=== PATIENT | female | born 1940 | race Caucasian/White ===

== ENCOUNTER 2024-03-16 14:43 | Inpatient (IN) | payer MEDICARE ==
[~2024-03-16] VITALS: Ht 162.6 cm; Wt 95.7 kg
[2024-03-16 16:53] VITALS: BP 102/48; TEMP 98; O2SAT 98
[2024-03-16] MEDS ORDERED: ATOR80TA PO (18:52)
[2024-03-16] MEDS ORDERED: MONT10TA33 PO (18:52)
[2024-03-16] MEDS ORDERED: NITR0.4T48 SL (18:52)
[2024-03-16] MEDS ORDERED: IPRA0.2S48 NEB (18:52)
[2024-03-16] MEDS ORDERED: ACET-2154 PO (18:52)
[2024-03-16] MEDS ORDERED: ALBU2.5V13 NEB ×2 (18:52)
[2024-03-16] MEDS ORDERED: CLOT12CR TP (18:52)
[2024-03-16] MEDS ORDERED: MAGN30OR PO (18:52)
[2024-03-16] MEDS ORDERED: DULO60CA45 PO (18:52)
[2024-03-16] MEDS ORDERED: METF-440 PO (18:52)
[2024-03-16] MEDS ORDERED: LEVO100T10 PO (18:52)
[2024-03-16] MEDS ORDERED: BUME1TAB8 PO (18:52)
[2024-03-16] MEDS ORDERED: GABA600T12 PO (18:52)
[2024-03-16] MEDS ORDERED: ALLO300T2 PO (18:52)
[2024-03-16] MEDS ORDERED: ONDA4TAB5 PO (18:53)
[2024-03-16] MEDS ORDERED: ZOLP5TAB8 PO (18:53)
[2024-03-16] MEDS ORDERED: THEO300C4 PO (18:53)
[2024-03-16] MEDS ORDERED: PANT40TA2 PO (18:53)
[2024-03-16] MEDS ORDERED: TRAM50TA2 PO (18:53)
[2024-03-16] MEDS ORDERED: MAG355OR18 PO (19:32)
[2024-03-16] MEDS ORDERED: ZINC113P3 TP (19:32)
[2024-03-16 20:09] VITALS: BP 95/51; TEMP 97.9; O2SAT 95
[2024-03-16] MEDS ORDERED: ALBUTEROL SULFATE 1.25 MG/3 ML NEBU NEB PRN (21:15)
[2024-03-16] MEDS ORDERED: IPRATROPIUM BROMIDE 0.5 MG/2.5 ML NEBU NEB PRN (21:15)
[2024-03-16] MEDS: ENOXAPARIN SODIUM 40 MG/0.4 ML DISP.SYRIN SQ SCH (23:39)
[2024-03-17] VITALS (7 sets, daily range): BP systolic 110–141; BP diastolic 54–60; TEMP 97.8–98.6; O2SAT 93–99
[2024-03-17] MEDS ORDERED: REMEDY ESSENTIAL ZINC PASTE 113 GM TOP PRN (03:00)
[2024-03-17] MEDS: ACETAMINOPHEN ES 500 MG TABLET PO PRN (04:53)
[2024-03-17] MEDS: LEVOTHYROXINE SODIUM 100 MCG TABLET PO SCH (06:24)
[2024-03-17] MEDS: PANTOPRAZOLE SODIUM 40 MG TABLET.DR PO SCH (06:24)
[2024-03-17] MEDS ORDERED: LEVOTHYROXINE SODIUM 100 MCG TABLET PO SCH (07:30)
[2024-03-17] MEDS ORDERED: THEOPHYLLINE ANHYDROUS 300 MG PO SCH (09:00)
[2024-03-17] MEDS ORDERED: CLOTRIMAZOLE 1% CREAM 30 GM TUBE TP SCH (09:00)
[2024-03-17] MEDS: ALLOPURINOL 300 MG TABLET PO SCH (09:24)
[2024-03-17] MEDS: GABAPENTIN 300 MG CAPSULE PO SCH (09:24)
[2024-03-17] MEDS: METFORMIN HCL 500 MG TABLET PO SCH (09:24)
[2024-03-17] MEDS: CLOTRIMAZOLE 1% CREAM 30 GM TUBE TP SCH (09:25)
[2024-03-17] MEDS ORDERED: OMEP40CA21 PO (11:19)
[2024-03-17] MEDS ORDERED: ROSU40TA PO (11:19)
[2024-03-17] MEDS ORDERED: AIRSUPRA INH (11:41)
[2024-03-17] MEDS ORDERED: POTA-10 PO (12:29)
[2024-03-17] MEDS: IPRATROPIUM BROMIDE 0.5 MG/2.5 ML NEBU NEB SCH (14:26)
[2024-03-17] MEDS: ALBUTEROL SULFATE 1.25 MG/3 ML NEBU NEB SCH (14:26)
[2024-03-17] MEDS: methylPREDNISolone SOD SUCC 125 MG/2 ML VIAL IV ONE (14:36)
[2024-03-17] MEDS: DOXYCYCLINE HYCLATE 100 MG TABLET PO SCH (14:36)
[2024-03-17] MEDS ORDERED: IPRATROPIUM BROMIDE 0.5 MG/2.5 ML NEBU ONE (19:40)
[2024-03-17] MEDS ORDERED: ALBUTEROL SULFATE 2.5 MG/3 ML NEBU ONE (19:40)
[2024-03-17] MEDS: DULOXETINE 60 MG CAPSULE.DR PO SCH (20:43)
[2024-03-17] MEDS: ATORVASTATIN 40 MG TABLET PO SCH (20:44)
[2024-03-17] MEDS: BUMETANIDE 1 MG TABLET PO SCH (20:44)
[2024-03-17] MEDS: MONTELUKAST SODIUM 10 MG TABLET PO SCH (20:44)
[2024-03-18] VITALS (14 sets, daily range): BP systolic 107–139; BP diastolic 56–75; TEMP 97.3–98.6; O2SAT 93–99
[2024-03-18] MEDS: methylPREDNISolone SOD SUCC 40 MG/ML VIAL IV SCH (13:25)
[2024-03-18 19:14] LABS: DIFFERENTIAL COMMENT 0; HEMOGLOBIN 11.7 g/dL (10.9-14.3); LYMPHOCYTES # (AUTO) 1.9 K/uL (0.8-4.8); LYMPHOCYTES % (AUTO) 16.8 % (20.5-51.5); MEAN CORPUSCULAR HEMOGLOBIN 33.2 uug (24.7-32.8); MEAN CORPUSCULAR HGB CONC 33 g/dL (32.3-35.6); MEAN CORPUSCULAR VOLUME 99.9 fL (75.5-95.3); MONOCYTES # (AUTO) 0.2 K/uL (0.1-1.30); MONOCYTES % (AUTO) 1.7 % (0.0-11.0); NEUTROPHILS # (AUTO) 9.2 K/uL (1.8-8.9); NEUTROPHILS % (AUTO) 81.5 % (38.5-71.5); PLATELET COUNT (AUTO) 231 K/uL (179-408); RED BLOOD CELL COUNT(AUTO) 3.51 MIL/uL (3.63-4.92); WHITE BLOOD COUNT (AUTO) 11.3 K/uL (3.8-11.8)
[2024-03-18 19:21] LABS: ALANINE AMINOTRANSFERASE 48 U/L (14-59); ALBUMIN 3.1 g/dL (3.4-5.0); ALKALINE PHOSPHATASE 193 U/L (50-136); ASPARTATE AMINOTRANSFERASE 40 U/L (15-37); BILIRUBIN,TOTAL 0.4 mg/dL (0.2-1.0); CALCIUM 9.6 mg/dL (8.5-10.1); CARBON DIOXIDE 30 mmol/L (21-32); CHLORIDE 102 mmol/L (98-107); CREATININE 1.3 mg/dL (0.6-1.3); GLUCOSE 247 mg/dL (74-106); POTASSIUM 4.6 mmol/L (3.5-5.1); SODIUM SERUM 140 mmol/L (136-145); TOTAL PROTEIN, SERUM 7.2 g/dL (6.4-8.2); UREA NITROGEN, BLOOD 37 mg/dL (7-18)
[2024-03-18] MEDS: MUPIROCIN 2% OINT 22 GM TUBE NS SCH (20:23)
== END 2024-03-18 20:22 | disposition short-term general hospital (02) | DRG 559 ==
PROVIDERS: ADMIT Physical Medicine & Rehabilitation Pain Medicine; ATTEND Physical Medicine & Rehabilitation Pain Medicine
DX: S82.831D Other fracture of upper and lower end of right fibula, subsequent encounter for closed fracture with routine healing (principal); I50.33 Acute on chronic diastolic (congestive) heart failure; I13.0 Hypertensive heart and chronic kidney disease with heart failure and stage 1 through stage 4 chronic kidney disease, or unspecified chronic kidney disease; J44.1 Chronic obstructive pulmonary disease with (acute) exacerbation; W19.XXXD Unspecified fall, subsequent encounter; E03.9 Hypothyroidism, unspecified; E78.5 Hyperlipidemia, unspecified; I48.91 Unspecified atrial fibrillation; F41.9 Anxiety disorder, unspecified; M85.89 Other specified disorders of bone density and structure, multiple sites; N18.30 Chronic kidney disease, stage 3 unspecified; R62.7 Adult failure to thrive; Z87.891 Personal history of nicotine dependence; Z88.2 Allergy status to sulfonamides; K21.9 Gastro-esophageal reflux disease without esophagitis; M19.90 Unspecified osteoarthritis, unspecified site; Z88.8 Allergy status to other drugs, medicaments and biological substances; Z91.018 Allergy to other foods
CPT/HCPCS: 36415; 71045; 83735; 85025; 94640; A9150; J1650; J2919; J3590

== ENCOUNTER 2024-03-23 12:56 | Inpatient (IN) | payer MEDICARE ==
[~2024-03-23] VITALS: Ht 162.6 cm; Wt 92.1 kg
[~2024-03-23 12:56] MED LIST: AIRSUPRA INH; ALLO300T2 PO; BUME1TAB8 PO; CLOT12CR TP; DULO60CA45 PO; GABA600T12 PO; LEVO100T10 PO; METF-440 PO; MONT10TA33 PO; NITR0.4T48 SL; OMEP40CA21 PO; POTA-10 PO; ROSU40TA PO; THEO300C4 PO; TRAM50TA2 PO; ZOLP5TAB8 PO
[2024-03-23] MEDS ORDERED: MUPI22OI2 (14:57)
[2024-03-23] MEDS ORDERED: ATOR80TA PO (15:01)
[2024-03-23] MEDS ORDERED: PANT40TA2 PO (15:02)
[2024-03-23] MEDS ORDERED: ALBU1.25 IH (15:05)
[2024-03-23] MEDS ORDERED: IPRA0.2S48 NEB (15:06)
[2024-03-23] MEDS ORDERED: METH40VI33 IV (15:20)
[2024-03-23] MEDS ORDERED: GUAI600T53 PO (15:22)
[2024-03-23] MEDS ORDERED: POLY17PO4 PO (15:23)
[2024-03-23 15:26] VITALS: BP 113/59; TEMP 97.8; O2SAT 94
[2024-03-23] MEDS ORDERED: TRAMADOL HCL 50 MG TABLET PO PRN (19:00)
[2024-03-23 19:15] VITALS: O2SAT 97
[2024-03-23 19:25] VITALS: O2SAT 99
[2024-03-23] MEDS: MONTELUKAST SODIUM 10 MG TABLET PO SCH (20:06)
[2024-03-23] MEDS: THEOPHYLLINE 300 MG PO SCH (20:06)
[2024-03-23] MEDS: MUPIROCIN 2% OINT 22 GM TUBE NS SCH (20:06)
[2024-03-23] MEDS: ATORVASTATIN 40 MG TABLET PO SCH (20:06)
[2024-03-23] MEDS: DULOXETINE 60 MG CAPSULE.DR PO SCH (20:06)
[2024-03-23] MEDS: GUAIFENESIN LA 600 MG TABLET.SA PO SCH (20:06)
[2024-03-23] MEDS ORDERED: Medication Not On Formulary EA (Atorvastatin Calcium (Lipitor) 80 MG) PO SCH (21:00)
[2024-03-23] MEDS ORDERED: ZOLPIDEM 5 MG TABLET PO PRN (21:00)
[2024-03-23 23:11] VITALS: O2SAT 98
[2024-03-23 23:21] VITALS: O2SAT 99
[2024-03-23 23:54] VITALS: BP 121/67; TEMP 97.7; O2SAT 95
[2024-03-24] VITALS (13 sets, daily range): BP systolic 101–130; BP diastolic 62–66; TEMP 97.5–98.1; O2SAT 96–100
[2024-03-24] MEDS: ALBUTEROL SULFATE 1.25 MG/3 ML NEBU IH SCH (03:50)
[2024-03-24] MEDS: IPRATROPIUM BROMIDE 0.5 MG/2.5 ML NEBU NEB SCH (03:50)
[2024-03-24] MEDS: LEVOTHYROXINE SODIUM 100 MCG TABLET PO SCH (06:10)
[2024-03-24] MEDS: PANTOPRAZOLE SODIUM 40 MG TABLET.DR PO SCH (06:10)
[2024-03-24] MEDS: MIRALAX 17 GM POWD.PACK PO SCH (08:31)
[2024-03-24] MEDS: BUMETANIDE 1 MG TABLET PO SCH (08:31)
[2024-03-24] MEDS: ALLOPURINOL 300 MG TABLET PO SCH (08:32)
[2024-03-24] MEDS: GABAPENTIN 300 MG CAPSULE PO SCH (08:32)
[2024-03-24] MEDS: METFORMIN HCL 500 MG TABLET PO SCH (08:32)
[2024-03-24] MEDS: POTASSIUM CHLORIDE 10 MEQ TAB.PRT.SR PO SCH (08:32)
[2024-03-24] MEDS: methylPREDNISolone SOD SUCC 40 MG/ML VIAL IV SCH (08:32)
[2024-03-24] MEDS: CLOTRIMAZOLE 1% CREAM 30 GM TUBE TP SCH (08:34)
[2024-03-24] MEDS ORDERED: Medication Not On Formulary EA (Gabapentin 600 MG) PO SCH (09:00)
[2024-03-25] VITALS (18 sets, daily range): BP systolic 97–118; BP diastolic 53–69; TEMP 97.4–98.3; O2SAT 92–100
[2024-03-26] VITALS (17 sets, daily range): BP systolic 101–133; BP diastolic 50–67; TEMP 97.7–98.3; O2SAT 94–99
[2024-03-26] MEDS: predniSONE 20 MG TABLET PO SCH (09:11)
[2024-03-27] VITALS (14 sets, daily range): BP systolic 98–107; BP diastolic 46–56; TEMP 97.4–97.7; O2SAT 96–99
[2024-03-28] VITALS (16 sets, daily range): BP systolic 99–116; BP diastolic 54–75; TEMP 97.5–98.4; O2SAT 92–99
[2024-03-28 07:47] LABS: EOSINOPHILS # (AUTO) 0.3 K/uL (0.0-0.7); EOSINOPHILS % (AUTO) 1.3 % (0.0-7.0); HEMATOCRIT 35.6 % (31.2-41.9); HEMOGLOBIN 11.8 g/dL (10.9-14.3); LYMPHOCYTES # (AUTO) 8.5 K/uL (0.8-4.8); LYMPHOCYTES % (AUTO) 44.9 % (20.5-51.5); MEAN CORPUSCULAR HEMOGLOBIN 33.1 uug (24.7-32.8); MEAN CORPUSCULAR HGB CONC 33 g/dL (32.3-35.6); MONOCYTES # (AUTO) 1.1 K/uL (0.1-1.30); MONOCYTES % (AUTO) 5.6 % (0.0-11.0); NEUTROPHILS # (AUTO) 9.1 K/uL (1.8-8.9); NEUTROPHILS % (AUTO) 48.2 % (38.5-71.5); PLATELET COUNT (AUTO) 202 K/uL (179-408); RED BLOOD CELL COUNT(AUTO) 3.56 MIL/uL (3.63-4.92); RED CELL DISTRIBUTION WIDTH 16.3 % (12.3-17.7); WHITE BLOOD COUNT (AUTO) 18.9 K/uL (3.8-11.8)
[2024-03-28 07:52] LABS: DIFFERENTIAL COMMENT 1
[2024-03-28 08:07] LABS: THYROID STIMULATING HORMONE 1.487 mIU/mL (0.358-3.740)
[2024-03-28 08:44] LABS: ALBUMIN 3.4 g/dL (3.4-5.0); BILIRUBIN,TOTAL 0.8 mg/dL (0.2-1.0); CALCIUM 9.3 mg/dL (8.5-10.1); CREATININE 1.1 mg/dL (0.6-1.3); MAGNESIUM 2.2 mg/dL (1.8-2.4); PHOSPHOROUS 2.5 mg/dL (2.5-4.9); POTASSIUM 3.1 mmol/L (3.5-5.1); TOTAL PROTEIN, SERUM 6.9 g/dL (6.4-8.2)
[2024-03-29] VITALS (13 sets, daily range): BP systolic 105–119; BP diastolic 56–64; TEMP 97.7–98.7; O2SAT 91–99
[2024-03-30] VITALS (16 sets, daily range): BP systolic 114–144; BP diastolic 60–67; TEMP 97.2–98; O2SAT 94–99
[2024-03-30 08:35] LABS: *BILIRUBIN,URIN NEGATIVE (NEGATIVE); *BLOOD, URINE NEGATIVE (NEGATIVE); *CLARITY,URINE CLEAR (CLEAR); *COLOR,URINE YELLOW (YELLOW); *KETONES,URINE NEGATIVE (NEGATIVE); *PROTEIN,URINE NEGATIVE (NEGATIVE); *UROBILINOGEN,URINE 0.2 E.U./dl (NORMAL); LEUKOCYTE ESTERASE ,URINE NEGATIVE (NEGATIVE); NITRITE, URINE NEGATIVE (NEGATIVE); UGLUCOSE NEGATIVE (NEGATIVE)
[2024-03-30] MEDS: ONDANSETRON 4 MG/2 ML VIAL IV PRN (14:27)
[2024-03-30] MEDS: ATORVASTATIN 40 MG TABLET PO SCH (21:25)
[2024-03-31] VITALS (17 sets, daily range): BP systolic 100–124; BP diastolic 56–61; TEMP 97.8–98.7; O2SAT 93–99
[2024-03-31 07:17] LABS: BASOPHILS # (AUTO) 0.1 K/UL (0.0-0.2); BASOPHILS % (AUTO) 0.3 % (0.0-2.0); EOSINOPHILS # (AUTO) 0.2 K/uL (0.0-0.7); EOSINOPHILS % (AUTO) 1.2 % (0.0-7.0); HEMATOCRIT 34.5 % (31.2-41.9); HEMOGLOBIN 11.3 g/dL (10.9-14.3); LYMPHOCYTES % (AUTO) 46.2 % (20.5-51.5); MEAN CORPUSCULAR HEMOGLOBIN 33.1 uug (24.7-32.8); MEAN CORPUSCULAR HGB CONC 33 g/dL (32.3-35.6); MEAN CORPUSCULAR VOLUME 101.4 fL (75.5-95.3); MONOCYTES # (AUTO) 1.1 K/uL (0.1-1.30); MONOCYTES % (AUTO) 5.4 % (0.0-11.0); NEUTROPHILS # (AUTO) 9.1 K/uL (1.8-8.9); NEUTROPHILS % (AUTO) 46.9 % (38.5-71.5); PLATELET COUNT (AUTO) 181 K/uL (179-408); RED CELL DISTRIBUTION WIDTH 16.6 % (12.3-17.7); WHITE BLOOD COUNT (AUTO) 19.5 K/uL (3.8-11.8)
[2024-03-31 07:37] LABS: DIFFERENTIAL COMMENT 1
[2024-03-31 07:43] LABS: ALANINE AMINOTRANSFERASE 27 U/L (14-59); ALBUMIN 3.3 g/dL (3.4-5.0); ALKALINE PHOSPHATASE 120 U/L (50-136); ASPARTATE AMINOTRANSFERASE 17 U/L (15-37); BILIRUBIN,TOTAL 0.5 mg/dL (0.2-1.0); CALCIUM 8.9 mg/dL (8.5-10.1); CARBON DIOXIDE 36 mmol/L (21-32); CHLORIDE 97 mmol/L (98-107); CREATININE 1.1 mg/dL (0.6-1.3); GLUCOSE 118 mg/dL (74-106); MAGNESIUM 2.1 mg/dL (1.8-2.4); PHOSPHOROUS 3.4 mg/dL (2.5-4.9); POTASSIUM 3.2 mmol/L (3.5-5.1); SODIUM SERUM 139 mmol/L (136-145); TOTAL PROTEIN, SERUM 6.5 g/dL (6.4-8.2); UREA NITROGEN, BLOOD 22 mg/dL (7-18)
[2024-03-31] MEDS: GUAIFENESIN LA 600 MG TABLET.SA PO SCH (08:27)
[2024-03-31] MEDS: POTASSIUM CHLORIDE 20 MEQ TAB.PRT.SR PO ONE (11:47)
[2024-04-01] VITALS (17 sets, daily range): BP systolic 122–133; BP diastolic 64–70; TEMP 97.6–98.7; O2SAT 94–98
[2024-04-02] VITALS (15 sets, daily range): BP systolic 124–137; BP diastolic 59–73; TEMP 97.5–98.7; O2SAT 91–98
[2024-04-02] MEDS ORDERED: IPRATROPIUM BROMIDE 0.5 MG/2.5 ML NEBU NEB PRN (23:15)
[2024-04-02] MEDS ORDERED: ALBUTEROL SULFATE 2.5 MG/ 0.5 ML NEBU NEB PRN (23:15)
[2024-04-03] VITALS (15 sets, daily range): BP systolic 108–118; BP diastolic 56–60; TEMP 97.6–98.7; O2SAT 92–98
[2024-04-03] MEDS: predniSONE 10 MG TABLET PO SCH (08:07)
[2024-04-03] MEDS: FLUTICASONE/VILANTEROL 1 EACH BLST.W.DEV INH SCH (08:52)
[2024-04-04] VITALS (15 sets, daily range): BP systolic 106–130; BP diastolic 55–71; TEMP 97.9–98.7; O2SAT 95–100
[2024-04-05] VITALS (15 sets, daily range): BP systolic 103–121; BP diastolic 56–60; TEMP 97.6–98.5; O2SAT 94–99
[2024-04-06] VITALS (15 sets, daily range): BP systolic 102–125; BP diastolic 55–70; TEMP 97.5–98.4; O2SAT 95–99
[2024-04-06] MEDS ORDERED: REMEDY ESSENTIAL ZINC PASTE 113 GM TOP PRN (08:00)
[2024-04-06] MEDS ORDERED: GUAIFENESIN/D-METHORPHAN 10 ML UDC (DIABETIC FORMULA) PO PRN (09:00)
[2024-04-06] MEDS: GUAIFENESIN SUGAR FREE 100 MG/5 ML UDC PO PRN (12:52)
[2024-04-06] MEDS: BUMETANIDE 1 MG TABLET PO SCH (13:40)
[2024-04-07] VITALS (16 sets, daily range): BP systolic 104–124; BP diastolic 54–72; TEMP 98.2–98.5; O2SAT 94–100
[2024-04-08] VITALS (8 sets, daily range): BP systolic 124–134; BP diastolic 57–63; TEMP 97.9–98.3; O2SAT 96–100
== END 2024-04-08 14:00 | DRG 560 ==
PROVIDERS: ADMIT Physical Medicine & Rehabilitation Pain Medicine; ATTEND Physical Medicine & Rehabilitation
DX: S82.831D Other fracture of upper and lower end of right fibula, subsequent encounter for closed fracture with routine healing (principal); D68.59 Other primary thrombophilia; E44.1 Mild protein-calorie malnutrition; I13.0 Hypertensive heart and chronic kidney disease with heart failure and stage 1 through stage 4 chronic kidney disease, or unspecified chronic kidney disease; I50.32 Chronic diastolic (congestive) heart failure; J44.1 Chronic obstructive pulmonary disease with (acute) exacerbation; I48.0 Paroxysmal atrial fibrillation; K21.9 Gastro-esophageal reflux disease without esophagitis; I25.10 Atherosclerotic heart disease of native coronary artery without angina pectoris; E03.9 Hypothyroidism, unspecified; E78.5 Hyperlipidemia, unspecified; N18.30 Chronic kidney disease, stage 3 unspecified; Z68.36 Body mass index [BMI] 36.0-36.9, adult; E66.9 Obesity, unspecified; W19.XXXD Unspecified fall, subsequent encounter; E11.22 Type 2 diabetes mellitus with diabetic chronic kidney disease; E11.40 Type 2 diabetes mellitus with diabetic neuropathy, unspecified; E87.6 Hypokalemia; E88.09 Other disorders of plasma-protein metabolism, not elsewhere classified; F41.9 Anxiety disorder, unspecified; H35.30 Unspecified macular degeneration; M19.90 Unspecified osteoarthritis, unspecified site; Z88.2 Allergy status to sulfonamides; Z95.818 Presence of other cardiac implants and grafts; Z98.61 Coronary angioplasty status; R26.89 Other abnormalities of gait and mobility; Z88.8 Allergy status to other drugs, medicaments and biological substances; Z91.018 Allergy to other foods
CPT/HCPCS: 36415; 83550; 83735; 84100; 84443; 85025; 94640; 94664; 94760; 97535-GO-CO; A6209; A6213; J2405; J2919; J3590; J7512

== ENCOUNTER 2024-06-04 20:24 | Inpatient (IN) | payer MEDICARE ==
[~2024-06-04] VITALS: Ht 162.6 cm; Wt 94.8 kg
[~2024-06-04 20:24] MED LIST changes: +ALBU1.25 IH; +ATOR80TA PO; +GUAI600T53 PO; +IPRA0.2S48 NEB; +MUPI22OI2; -OMEP40CA21 PO; +PANT40TA2 PO; +POLY17PO4 PO; -ROSU40TA PO
[2024-06-04] MEDS ORDERED: PROT30LI PO (21:05)
[2024-06-04] MEDS ORDERED: CLOT30CR24 TP (21:05)
[2024-06-04] MEDS ORDERED: BISA10SU61 RC (21:05)
[2024-06-04] MEDS ORDERED: MAGN400O6 PO (21:05)
[2024-06-04] MEDS ORDERED: ASCO500C18 PO (21:05)
[2024-06-04] MEDS ORDERED: NA P133E RC (21:05)
[2024-06-04] MEDS ORDERED: MULT-1045 PO (21:05)
[2024-06-04] MEDS ORDERED: ACET325T53 PO (21:05)
[2024-06-04] MEDS ORDERED: DOCU100C36 PO (21:05)
[2024-06-04] MEDS ORDERED: [UNRECOGNIZED DRUG - OTHER] PO (21:05)
[2024-06-04] MEDS ORDERED: KETOROLAC TROMETHAMINE 15 MG INJ ONE (21:20)
[2024-06-04] MEDS: KETOROLAC TROMETHAMINE 15 MG INJ IVP ONE (21:23)
[2024-06-04 21:24] LABS: BASOPHILS % (AUTO) 0.7 % (0.0-2.0); DIFFERENTIAL COMMENT 1; EOSINOPHILS # (AUTO) 0.3 K/uL (0.0-0.7); EOSINOPHILS % (AUTO) 5.2 % (0.0-7.0); HEMATOCRIT 36.6 % (31.2-41.9); HEMOGLOBIN 11.8 g/dL (10.9-14.3); LYMPHOCYTES # (AUTO) 2.6 K/uL (0.8-4.8); LYMPHOCYTES % (AUTO) 39.7 % (20.5-51.5); MEAN CORPUSCULAR HEMOGLOBIN 32.5 uug (24.7-32.8); MEAN CORPUSCULAR HGB CONC 32 g/dL (32.3-35.6); MONOCYTES # (AUTO) 0.6 K/uL (0.1-1.30); MONOCYTES % (AUTO) 9.7 % (0.0-11.0); NEUTROPHILS # (AUTO) 2.9 K/uL (1.8-8.9); NEUTROPHILS % (AUTO) 44.7 % (38.5-71.5); PLATELET COUNT (AUTO) 174 K/uL (179-408); RED BLOOD CELL COUNT(AUTO) 3.62 MIL/uL (3.63-4.92); RED CELL DISTRIBUTION WIDTH 15.9 % (12.3-17.7); WHITE BLOOD COUNT (AUTO) 6.5 K/uL (3.8-11.8)
[2024-06-04 21:34] LABS: CALCIUM 9.4 mg/dL (8.5-10.1); CREATININE 1.1 mg/dL (0.6-1.3); POTASSIUM 3.9 mmol/L (3.5-5.1)
[2024-06-04 21:44] LABS: ALBUMIN 2.8 g/dL (3.4-5.0); BILIRUBIN,DIRECT 0.1 mg/dL (0.0-0.2); BILIRUBIN,TOTAL 0.5 mg/dL (0.2-1.0); TOTAL PROTEIN, SERUM 6.2 g/dL (6.4-8.2)
[2024-06-04] MEDS ORDERED: VANCOMYCIN 1000 MG VIAL ONE (23:19)
[2024-06-04] MEDS ORDERED: VANCOMYCIN HCL 500 MG VIAL ONE (23:19)
[2024-06-04] MEDS: VANCOMYCIN IV 1,500 MG in IV DEXTROSE 5% 250 ML IV ONE (23:31)
[2024-06-05] MEDS ORDERED: ACETAMINOPHEN 325 MG TABLET PO PRN (00:15)
[2024-06-05] MEDS ORDERED: MORPHINE SULFATE 2 MG/1 ML DISP.SYRIN IVP PRN (00:15)
[2024-06-05] MEDS ORDERED: hydrALAZINE HCL 20 MG/1 ML VIAL IV PRN (00:15)
[2024-06-05] MEDS ORDERED: ONDANSETRON 4 MG/2 ML VIAL IV PRN (00:15)
[2024-06-05] MEDS: IV NS 1000 ML 1,000 ML IV SCH (03:30)
[2024-06-05 05:21] VITALS: O2SAT 96
[2024-06-05 06:00] VITALS: BP 114/59; TEMP 97.8; O2SAT 95
[2024-06-05] MEDS ORDERED: CLINDAMYCIN 900MG/D5W 100ML IVPB **ER PYXIS ONLY IJ ONE (06:08)
[2024-06-05] MEDS: CLINDAMYCIN PHOSPHATE IV 900 MG in IV DEXTROSE 5% 100 ML IV SCH (06:46)
[2024-06-05] MEDS: PANTOPRAZOLE SODIUM 40 MG TABLET.DR PO SCH (06:50)
[2024-06-05] MEDS: LEVOTHYROXINE SODIUM 100 MCG TABLET PO SCH (06:50)
[2024-06-05] MEDS: ALLOPURINOL 300 MG TABLET PO SCH (08:46)
[2024-06-05] MEDS: BUMETANIDE 1 MG TABLET PO SCH (08:46)
[2024-06-05] MEDS: GABAPENTIN 300 MG CAPSULE PO SCH (08:47)
[2024-06-05] MEDS: HEPARIN SODIUM,PORCINE 5,000 UNITS/ML VIAL SQ SCH (08:50)
[2024-06-05] MEDS ORDERED: ACET-73 PO (11:39)
[2024-06-05 11:42] VITALS: BP 119/51; TEMP 97.7; O2SAT 99
[2024-06-05] MEDS ORDERED: REMEDY ESSENTIAL ZINC PASTE 113 GM TOP PRN (13:30)
[2024-06-05] MEDS: MIRALAX 17 GM POWD.PACK PO ONE (13:40)
[2024-06-05] MEDS ORDERED: SENNOSIDES 1 TABLET PO PRN (13:45)
[2024-06-05 15:53] VITALS: BP 107/48; TEMP 97.8; O2SAT 94
[2024-06-05] MEDS: CLOTRIMAZOLE 1% CREAM 30 GM TUBE TOP SCH (17:30)
[2024-06-05] MEDS: MONTELUKAST SODIUM 10 MG TABLET PO SCH (20:24)
[2024-06-05] MEDS: ATORVASTATIN 40 MG TABLET PO SCH (20:24)
[2024-06-05] MEDS: DOCUSATE SODIUM 100 MG CAPSULE PO SCH (20:24)
[2024-06-05] MEDS: DULOXETINE 60 MG CAPSULE.DR PO SCH (20:24)
[2024-06-05] MEDS: REMEDY ESSENTIAL ZINC PASTE 113 GM TOP SCH (20:25)
[2024-06-05 20:56] VITALS: BP 108/53; TEMP 98.4; O2SAT 96
[2024-06-05] MEDS ORDERED: DOCUSATE SODIUM 100 MG/10 ML LIQUID UDC GT SCH (21:00)
[2024-06-05] MEDS ORDERED: HEPARIN SODIUM,PORCINE 5,000 UNITS/ML VIAL SQ SCH (21:00)
[2024-06-05] MEDS: MUPIROCIN 2% OINT 22 GM TUBE TP SCH (21:00)
[2024-06-06 06:09] VITALS: BP 104/52; TEMP 97.7; O2SAT 94
[2024-06-06] MEDS: LEVOTHYROXINE SODIUM 100 MCG TABLET PO SCH (06:09)
[2024-06-06 07:46] LABS: BASOPHILS % (AUTO) 0.5 % (0.0-2.0); EOSINOPHILS # (AUTO) 0.4 K/uL (0.0-0.7); EOSINOPHILS % (AUTO) 5.4 % (0.0-7.0); HEMATOCRIT 32.9 % (31.2-41.9); HEMOGLOBIN 10.6 g/dL (10.9-14.3); LYMPHOCYTES # (AUTO) 2.9 K/uL (0.8-4.8); MEAN CORPUSCULAR HEMOGLOBIN 32.7 uug (24.7-32.8); MEAN CORPUSCULAR HGB CONC 32 g/dL (32.3-35.6); MEAN CORPUSCULAR VOLUME 101.2 fL (75.5-95.3); MONOCYTES # (AUTO) 0.8 K/uL (0.1-1.30); NEUTROPHILS # (AUTO) 2.7 K/uL (1.8-8.9); NEUTROPHILS % (AUTO) 40.1 % (38.5-71.5); PLATELET COUNT (AUTO) 183 K/uL (179-408); RED BLOOD CELL COUNT(AUTO) 3.25 MIL/uL (3.63-4.92); RED CELL DISTRIBUTION WIDTH 15.8 % (12.3-17.7); WHITE BLOOD COUNT (AUTO) 6.8 K/uL (3.8-11.8)
[2024-06-06 08:01] LABS: DIFFERENTIAL COMMENT 1
[2024-06-06 08:02] LABS: ALANINE AMINOTRANSFERASE 13 U/L (14-59); ALBUMIN 2.6 g/dL (3.4-5.0); ALKALINE PHOSPHATASE 100 U/L (50-136); ASPARTATE AMINOTRANSFERASE 13 U/L (15-37); BILIRUBIN,TOTAL 0.5 mg/dL (0.2-1.0); CALCIUM 8.8 mg/dL (8.5-10.1); CARBON DIOXIDE 37 mmol/L (21-32); CHLORIDE 102 mmol/L (98-107); CREATININE 1.2 mg/dL (0.6-1.3); GLUCOSE 125 mg/dL (74-106); POTASSIUM 4.1 mmol/L (3.5-5.1); SODIUM SERUM 142 mmol/L (136-145); UREA NITROGEN, BLOOD 31 mg/dL (7-18)
[2024-06-06 10:59] VITALS: BP 109/52; TEMP 98.2; O2SAT 95
[2024-06-06 15:03] VITALS: BP 101/55; TEMP 98.4; O2SAT 93
[2024-06-06 16:15] VITALS: O2SAT 95
[2024-06-06] MEDS ORDERED: ALBUTEROL SULFATE 1.25 MG/3 ML NEBU NEB PRN (20:15)
[2024-06-06] MEDS ORDERED: IPRATROPIUM BROMIDE 0.5 MG/2.5 ML NEBU NEB PRN (20:15)
[2024-06-06 20:25] VITALS: BP 100/48; TEMP 98; O2SAT 94
[2024-06-07 05:52] VITALS: O2SAT 96
[2024-06-07 06:20] VITALS: BP 107/44; TEMP 97.5; O2SAT 94
[2024-06-07 08:02] LABS: BASOPHILS % (AUTO) 0.5 % (0.0-2.0); EOSINOPHILS # (AUTO) 0.3 K/uL (0.0-0.7); HEMATOCRIT 34.9 % (31.2-41.9); HEMOGLOBIN 11.4 g/dL (10.9-14.3); LYMPHOCYTES # (AUTO) 2.6 K/uL (0.8-4.8); LYMPHOCYTES % (AUTO) 40.6 % (20.5-51.5); MEAN CORPUSCULAR HEMOGLOBIN 32.9 uug (24.7-32.8); MEAN CORPUSCULAR HGB CONC 33 g/dL (32.3-35.6); MEAN CORPUSCULAR VOLUME 101.2 fL (75.5-95.3); MONOCYTES # (AUTO) 0.6 K/uL (0.1-1.30); MONOCYTES % (AUTO) 9.7 % (0.0-11.0); NEUTROPHILS # (AUTO) 2.8 K/uL (1.8-8.9); NEUTROPHILS % (AUTO) 44.2 % (38.5-71.5); PLATELET COUNT (AUTO) 185 K/uL (179-408); RED BLOOD CELL COUNT(AUTO) 3.45 MIL/uL (3.63-4.92); RED CELL DISTRIBUTION WIDTH 15.7 % (12.3-17.7); WHITE BLOOD COUNT (AUTO) 6.3 K/uL (3.8-11.8)
[2024-06-07 08:05] LABS: CARBON DIOXIDE 37 mmol/L (21-32); CHLORIDE 106 mmol/L (98-107); CREATININE 1.2 mg/dL (0.6-1.3); GLUCOSE 119 mg/dL (74-106); MAGNESIUM 2.6 mg/dL (1.8-2.4); PHOSPHOROUS 4.2 mg/dL (2.5-4.9); POTASSIUM 4.3 mmol/L (3.5-5.1); SODIUM SERUM 145 mmol/L (136-145); UREA NITROGEN, BLOOD 32 mg/dL (7-18)
[2024-06-07 08:26] LABS: DIFFERENTIAL COMMENT 1
[2024-06-07 11:04] VITALS: BP 109/49; TEMP 97.5; O2SAT 94
[2024-06-07 15:11] VITALS: BP 126/73; TEMP 98.5
[2024-06-07 16:33] VITALS: O2SAT 95
[2024-06-07 20:35] VITALS: BP 97/46; TEMP 98.4; O2SAT 93
[2024-06-08 02:50] VITALS: O2SAT 96
[2024-06-08 06:00] VITALS: BP 120/55; TEMP 98.3; O2SAT 93
[2024-06-08 06:56] LABS: BASOPHILS % (AUTO) 0.4 % (0.0-2.0); EOSINOPHILS # (AUTO) 0.3 K/uL (0.0-0.7); EOSINOPHILS % (AUTO) 4.5 % (0.0-7.0); HEMATOCRIT 33.9 % (31.2-41.9); LYMPHOCYTES # (AUTO) 2.9 K/uL (0.8-4.8); LYMPHOCYTES % (AUTO) 45.8 % (20.5-51.5); MEAN CORPUSCULAR HEMOGLOBIN 32.9 uug (24.7-32.8); MEAN CORPUSCULAR HGB CONC 33 g/dL (32.3-35.6); MEAN CORPUSCULAR VOLUME 100.8 fL (75.5-95.3); MONOCYTES # (AUTO) 0.6 K/uL (0.1-1.30); MONOCYTES % (AUTO) 9.8 % (0.0-11.0); NEUTROPHILS # (AUTO) 2.5 K/uL (1.8-8.9); NEUTROPHILS % (AUTO) 39.5 % (38.5-71.5); PLATELET COUNT (AUTO) 200 K/uL (179-408); RED BLOOD CELL COUNT(AUTO) 3.36 MIL/uL (3.63-4.92); RED CELL DISTRIBUTION WIDTH 15.7 % (12.3-17.7); WHITE BLOOD COUNT (AUTO) 6.3 K/uL (3.8-11.8)
[2024-06-08 07:08] LABS: CALCIUM 8.9 mg/dL (8.5-10.1); CARBON DIOXIDE 38 mmol/L (21-32); CHLORIDE 105 mmol/L (98-107); CREATININE 1.2 mg/dL (0.6-1.3); GLUCOSE 114 mg/dL (74-106); POTASSIUM 4.5 mmol/L (3.5-5.1); SODIUM SERUM 143 mmol/L (136-145); UREA NITROGEN, BLOOD 33 mg/dL (7-18)
[2024-06-08 07:37] LABS: DIFFERENTIAL COMMENT 1
[2024-06-08] MEDS ORDERED: ALBUTEROL SULFATE 2.5 MG/3 ML NEBU NEB PRN (09:45)
[2024-06-08 12:00] VITALS: BP 105/58; TEMP 97.6; O2SAT 96
[2024-06-08 16:00] VITALS: BP 101/58; TEMP 97.8; O2SAT 97
== END 2024-06-08 16:30 | DRG 563 ==
LOC: ER 20:26 → MEDSURG3 06-05 00:23
PROVIDERS: ADMIT Internal Medicine
PROC: 2W3RX1Z Immobilization of Left Lower Leg using Splint (ICD-10-PCS; principal; 2024-06-05)
DX: S82.52XA Displaced fracture of medial malleolus of left tibia, initial encounter for closed fracture (principal); L03.116 Cellulitis of left lower limb; I45.2 Bifascicular block; I13.0 Hypertensive heart and chronic kidney disease with heart failure and stage 1 through stage 4 chronic kidney disease, or unspecified chronic kidney disease; I50.32 Chronic diastolic (congestive) heart failure; J96.11 Chronic respiratory failure with hypoxia; V98.8XXA Other specified transport accidents, initial encounter; Y92.89 Other specified places as the place of occurrence of the external cause; E86.0 Dehydration; Z88.2 Allergy status to sulfonamides; Z91.041 Radiographic dye allergy status; I48.0 Paroxysmal atrial fibrillation; I25.10 Atherosclerotic heart disease of native coronary artery without angina pectoris; Z96.653 Presence of artificial knee joint, bilateral; Z95.5 Presence of coronary angioplasty implant and graft; Z79.899 Other long term (current) drug therapy; Z79.890 Hormone replacement therapy; J44.9 Chronic obstructive pulmonary disease, unspecified; E66.9 Obesity, unspecified; Z68.35 Body mass index [BMI] 35.0-35.9, adult; H35.30 Unspecified macular degeneration; E87.6 Hypokalemia; F41.9 Anxiety disorder, unspecified; G62.9 Polyneuropathy, unspecified; K59.00 Constipation, unspecified; E03.9 Hypothyroidism, unspecified; K21.9 Gastro-esophageal reflux disease without esophagitis; R32 Unspecified urinary incontinence; N18.9 Chronic kidney disease, unspecified; M85.80 Other specified disorders of bone density and structure, unspecified site; Z99.81 Dependence on supplemental oxygen; M15.9 Polyosteoarthritis, unspecified; E78.5 Hyperlipidemia, unspecified; Z79.84 Long term (current) use of oral hypoglycemic drugs; Z66 Do not resuscitate
CPT/HCPCS: 36415; 71045; 73590; 73610; 73700; 83690; 83735; 84100; 84484; 85025; 86140; 87040; 93005; 93307; A4606; A4663; G0378; J1644; J1885; J3370; J3490; J7050